=== PATIENT | male | born 1940 | race Caucasian/White ===

== ENCOUNTER 2019-07-30 11:26 | Observation (INO) | payer OTHER ==
[~2019-07-30] VITALS: Ht 172.7 cm; Wt 76.9 kg
[~2019-07-30 11:26] MED LIST: ACT15 PO; CAP12.5 PO; CAPOTEN25 MG PO; GEMFIBROZIL PO; GERD MEDICATION PO; IMDUR30 MG PO; METOPROLOL SUCC50 M2 PO; PANTOPRAZOLE SO40 M1 PO; PRI20 PO; SIMVASTATIN1 POW PO; ZOCOR40 MG PO
[2019-07-30 11:34] VITALS: Ht 172.7 cm; Wt 76.9 kg
[2019-07-30 12:40] LABS: BASOPHIL % 0.8 % (0-2); PLATELET COUNT 270 x10^3mcL (130-400); RED CELL DISTRIBUTION WIDTH 13.3 % (11.5-14.5)
[2019-07-30 13:16] LABS: ALBUMIN 3.4 g/dL (3.4-5.0); ALKALINE PHOSPHATASE 76 U/L (46-116); ALT/SGPT 10 U/L (16-63); AST/SGOT 17 U/L (15-37); BILIRUBIN TOTAL 0.65 mg/dL (0.20-1.00); CALCIUM 9.3 mg/dL (8.5-10.1); CARBON DIOXIDE 27.5 mmol/L (21-32); CHLORIDE SERUM 108 mmol/L (98-107); CREATININE SERUM 0.9 mg/dL (0.7-1.3); GLUCOSE SERUM 95 mg/dL (74-106); POTASSIUM SERUM 4.2 mmol/L (3.5-5.1); SODIUM SERUM 143 mmol/L (136-145); TOTAL PROTEIN, SERUM 6.7 g/dL (6.4-8.2)
[2019-07-30 14:10] LABS: microscopic required? NO
[2019-07-30 14:42] LABS: urine erythrocyte NEGATIVE (NEGATIVE)
[2019-07-30 15:51] LABS: AMPHETAMINE QUAL UR NONE DETECTED (See below)
[2019-07-30] MEDS ORDERED: ISOSORBIDE DINI30 M2 (16:27)
[2019-07-30] MEDS ORDERED: MEMANTINE HCL10 MG PO (16:27)
[2019-07-30] MEDS ORDERED: ARICEPT10 MG (16:29)
[2019-07-30] MEDS ORDERED: ASPIRIN ADULT L81 M3 PO (16:29)
[2019-07-30] MEDS ORDERED: GEMFIBROZIL600 MG (16:30)
[2019-07-30] MEDS ORDERED: VIT D3 (16:30)
[2019-07-30] MEDS ORDERED: METFORMIN500 M1 (16:31)
[2019-07-30] MEDS ORDERED: METOPROLOL SUCC50 M2 (16:31)
[2019-07-30] MEDS ORDERED: SIMVASTATIN5 M2 (16:32)
[2019-07-30] MEDS ORDERED: VIT B12 (16:32)
[2019-07-30] MEDS ORDERED: ESCITALOPRAM OXA5 MG (16:32)
[2019-07-30] MEDS ORDERED: RANITIDINE HCL300 M2 (16:33)
[2019-07-30] MEDS ORDERED: NITROGLYCERIN0.4 MG (16:33)
[2019-07-30 17:57] VITALS: BP 137/60
[2019-07-30 20:20] VITALS: BP 126/58
[2019-07-31 05:44] VITALS: BP 114/55
[2019-07-31 07:36] LABS: FREE T4 0.73 ng/dL (0.76-1.46)
[2019-07-31 08:03] LABS: CHLORIDE SERUM 108 mmol/L (98-107); CREATININE SERUM 0.8 mg/dL (0.7-1.3); GLUCOSE SERUM 106 mg/dL (74-106); POTASSIUM SERUM 3.8 mmol/L (3.5-5.1); SODIUM SERUM 144 mmol/L (136-145)
[2019-07-31 08:04] LABS: CALCIUM 8.9 mg/dL (8.5-10.1)
[2019-07-31 08:50] VITALS: BP 110/70
[2019-07-31 09:02] LABS: BASOPHIL % 0.4 % (0-2); PLATELET COUNT 250 x10^3mcL (130-400)
[2019-07-31 13:19] VITALS: BP 104/49
== END 2019-07-31 17:09 | disposition home or self-care (01) ==
LOC: ED 11:26 → DU 16:07 → EDBEDREQ 16:07 → DU 16:56
PROVIDERS: Student in an Organized Health Care Education/Training Program; ADMIT Internal Medicine Pulmonary Disease
DX: R00.1 Bradycardia, unspecified (principal); F03.90 Unspecified dementia, unspecified severity, without behavioral disturbance, psychotic disturbance, mood disturbance, and anxiety; I10 Essential (primary) hypertension; E78.5 Hyperlipidemia, unspecified; E11.9 Type 2 diabetes mellitus without complications
CPT/HCPCS: 84439; G0378; G0480; Q0092

== ENCOUNTER 2020-03-19 18:41 | Emergency (ER) | payer OTHER ==
[~2020-03-19] VITALS: Ht 167.6 cm; Wt 76.2 kg
[~2020-03-19 18:41] MED LIST changes: +ARICEPT10 MG; +ASPIRIN ADULT L81 M3 PO; +ESCITALOPRAM OXA5 MG; +GEMFIBROZIL600 MG; +ISOSORBIDE DINI30 M2; +MEMANTINE HCL10 MG PO; +METFORMIN500 M1; +METOPROLOL SUCC50 M2; +NITROGLYCERIN0.4 MG; +RANITIDINE HCL300 M2; +SIMVASTATIN5 M2; +VIT B12; +VIT D3
[2020-03-19 19:29] VITALS: Ht 167.6 cm; Wt 76.2 kg
[2020-03-19 20:12] LABS: BASOPHIL % 0.6 % (0-2); PLATELET COUNT 299 x10^3mcL (130-400); RED CELL DISTRIBUTION WIDTH 13.1 % (11.5-14.5)
[2020-03-19 20:24] LABS: CALCIUM 9.5 mg/dL (8.5-10.1); CARBON DIOXIDE 32.6 mmol/L (21-32); CHLORIDE SERUM 104 mmol/L (98-107); CREATININE SERUM 0.9 mg/dL (0.7-1.3); GLUCOSE SERUM 130 mg/dL (74-106); POTASSIUM SERUM 3.8 mmol/L (3.5-5.1); SODIUM SERUM 140 mmol/L (136-145)
[2020-03-19 20:37] LABS: ALBUMIN 3.5 g/dL (3.4-5.0); ALKALINE PHOSPHATASE 80 U/L (46-116); ALT/SGPT 31 U/L (16-63); AST/SGOT 28 U/L (15-37); BILIRUBIN TOTAL 0.4 mg/dL (0.20-1.00); T4(THYROXINE) 7.9 ug/dL (4.7-13.3); TOTAL PROTEIN, SERUM 7.2 g/dL (6.4-8.2)
[2020-03-19 21:11] LABS: microscopic required? NO
[2020-03-19 21:26] LABS: UA SPECIFIC GRAVITY 1.015 (1.005-1.035); urine erythrocyte NEGATIVE (NEGATIVE)
[2020-03-19 21:57] VITALS: BP 137/62
== END 2020-03-19 21:57 | disposition home or self-care (01) ==
LOC: ED 18:41
PROVIDERS: Emergency Medicine
DX: R60.0 Localized edema (principal); F03.90 Unspecified dementia, unspecified severity, without behavioral disturbance, psychotic disturbance, mood disturbance, and anxiety; E11.9 Type 2 diabetes mellitus without complications; I10 Essential (primary) hypertension; R07.0 Pain in throat; R11.2 Nausea with vomiting, unspecified
CPT/HCPCS: 83880; Q0092